=== PATIENT | female | born 1965 | race Caucasian/White ===

== ENCOUNTER 2018-05-10 19:35 | Inpatient (IN) | payer MEDICAID, OTHER ==
[2018-05-10] MEDS: ONDANSETRON 4 MG INJ IV (20:53)
[2018-05-10] MEDS: morphine 4 MG/ML VIAL IV (20:53)
[2018-05-10] MEDS: SOD CHLORIDE 0.9% 1,000 ML IV (20:54)
[2018-05-10 21:28] LABS: ADD MAN DIFF? NO
[2018-05-10 21:33] LABS: BASOPHILS % 0.3 % (0.0-2.0); EOSINOPHILS % 0.1 % (0.0-7.0); HEMATOCRIT 40.1 % (37.0-47.0); LYMPHOCYTES # 2.5 10^3/ul (0.8-2.9); LYMPHOCYTES % 27.5 % (15.0-51.0); MEAN CORPUSCULAR HEMOGLOBIN 30.9 pg (29.0-33.0); MEAN CORPUSCULAR HGB CONC 34.9 g/dl (32.0-37.0); MEAN CORPUSCULAR VOLUME 88.5 fl (82.0-101.0); MEAN PLATELET VOLUME 10.5 fl (7.4-10.4); MONOCYTE # 0.7 10^3/ul (0.3-0.9); MONOCYTES % 8.1 % (0.0-11.0); NEUTROPHIL # 5.7 10^3/ul (1.6-7.5); NEUTROPHILS % 63.6 % (39.0-77.0); PLATELET COUNT 275 10^3/UL (140-415); RED BLOOD COUNT 4.53 10^6/ul (4.20-5.40); RED CELL DISTRIBUTION WIDTH 12.1 % (11.5-14.5)
[2018-05-10 21:42] LABS: ADD UMIC YES; UR ASCORBIC ACID NEGATIVE (NEGATIVE); UR BACTERIA FEW /HPF (NONE SEEN); UR BILIRUBIN (Dip) NEGATIVE (NEGATIVE); UR BLOOD (Dip) NEGATIVE (NEGATIVE); UR CLARITY SLIGHTLY CLOUDY (CLEAR); UR COLOR YELLOW (YELLOW); UR GLUCOSE (Dip) 2+ mg/dL (NEGATIVE); UR KETONES (Dip) 2+ mg/dL (NEGATIVE); UR LEUKOCYTE ESTERASE (Dip) TRACE Leu/ul (NEGATIVE); UR MUCUS FEW /HPF (NONE SEEN); UR NITRITE (Dip) NEGATIVE (NEGATIVE); UR RBC 1 /HPF (0-5); UR SPECIFIC GRAVITY (Dip) 1.017 (1.003-1.030); UR SQUAMOUS EPITHELIAL CELL FEW /HPF (FEW); UR TOTAL PROTEIN (Dip) 1+ mg/dl (NEGATIVE); UR UROBILINOGEN (Dip) NEGATIVE (NEGATIVE); UR WBC 2 /HPF (0-5)
[2018-05-10 21:54] LABS: ALANINE AMINOTRANSFERASE 15 IU/L (13-69); ALBUMIN 4.5 g/dl (3.3-4.9); ALBUMIN/GLOBULIN RATIO 1.25; ALKALINE PHOSPHATASE 80 IU/L (42-121); ANION GAP 16 (8-16); ASPARTATE AMINO TRANSFERASE 54 IU/L (15-46); BILIRUBIN,INDIRECT 1.1 mg/dl (0-1.1); BILIRUBIN,TOTAL 1.1 mg/dl (0.2-1.3); BLOOD UREA NITROGEN 17 mg/dl (7-20); CALCIUM 9.1 mg/dl (8.4-10.2); CARBON DIOXIDE 26 mmol/L (21-31); CHLORIDE 92 mmol/L (97-110); CREATININE 0.67 mg/dl (0.44-1.00); GLUCOSE 158 mg/dl (70-220); LIPASE 629 U/L (23-300); POTASSIUM 3.5 mmol/L (3.5-5.1); SODIUM 130 mmol/L (135-144); TOTAL PROTEIN 8.1 g/dl (6.1-8.1)
[2018-05-10 22:05] LABS: TROPONIN-I 0.011 ng/ml (0.000-0.120)
[2018-05-11] MEDS: LACTATED RINGER'S 1,000 ML IV (01:03)
[2018-05-11] MEDS ORDERED: DOCUSATE SODIUM 100 MG CAP PO (02:00)
[2018-05-11] MEDS ORDERED: BISACODYL (EC) 5 MG TAB PO (02:00)
[2018-05-11] MEDS ORDERED: morphine 2 MG INJ IV (02:00)
[2018-05-11] MEDS ORDERED: ACETAMINOPHEN 325 MG TAB PO (02:00)
[2018-05-11] MEDS ORDERED: NACL 0.9% 3 ML SYG IV (02:00)
[2018-05-11] MEDS: SOD CHLORIDE 0.9% 1,000 ML IV ×4 (02:54→21:20)
[2018-05-11] MEDS: LEVOFLOXACIN 750MG/D5W (PMX) 150 ML IVPB (02:55)
[2018-05-11] MEDS ORDERED: morphine 2 MG INJ (04:58)
[2018-05-11] MEDS ORDERED: GLUCOSE GEL 15 GRAM TUBE BUCCAL (05:00)
[2018-05-11] MEDS ORDERED: GLUCAGON 1 MG INJ IM (05:00)
[2018-05-11] MEDS ORDERED: GLUCOSE GEL 15 GRAM TUBE PO (05:00)
[2018-05-11] MEDS ORDERED: DEXTROSE 50% 50 ML SYRINGE IV ×2 (05:00)
[2018-05-11] MEDS: ONDANSETRON 4 MG INJ IV (05:01)
[2018-05-11] MEDS: morphine 2 MG INJ IV (05:02)
[2018-05-11] MEDS: INSULIN ASPART [NOVOLOG] 3 ML PEN SC ×5 (05:07→21:00)
[2018-05-11 06:17] LABS: ADD MAN DIFF? NO
[2018-05-11 06:28] LABS: BASOPHILS % 0.3 % (0.0-2.0); EOSINOPHILS % 0.3 % (0.0-7.0); HEMATOCRIT 37.2 % (37.0-47.0); LYMPHOCYTES # 2.1 10^3/ul (0.8-2.9); LYMPHOCYTES % 23.5 % (15.0-51.0); MEAN CORPUSCULAR HEMOGLOBIN 30.5 pg (29.0-33.0); MEAN CORPUSCULAR HGB CONC 34.9 g/dl (32.0-37.0); MEAN CORPUSCULAR VOLUME 87.3 fl (82.0-101.0); MEAN PLATELET VOLUME 10.7 fl (7.4-10.4); MONOCYTE # 0.7 10^3/ul (0.3-0.9); MONOCYTES % 8.4 % (0.0-11.0); NEUTROPHIL # 5.9 10^3/ul (1.6-7.5); PLATELET COUNT 259 10^3/UL (140-415); RED BLOOD COUNT 4.26 10^6/ul (4.20-5.40)
[2018-05-11 06:28] LABS: WHITE BLOOD COUNT 8.8 10^3/ul (4.8-10.8)
[2018-05-11 06:45] LABS: ALANINE AMINOTRANSFERASE 20 IU/L (13-69); ALBUMIN 3.8 g/dl (3.3-4.9); ALBUMIN/GLOBULIN RATIO 1.22; ALKALINE PHOSPHATASE 63 IU/L (42-121); ANION GAP 13 (8-16); ASPARTATE AMINO TRANSFERASE 20 IU/L (15-46); BILIRUBIN,INDIRECT 0.9 mg/dl (0-1.1); BILIRUBIN,TOTAL 0.9 mg/dl (0.2-1.3); BLOOD UREA NITROGEN 12 mg/dl (7-20); CALCIUM 8.9 mg/dl (8.4-10.2); CARBON DIOXIDE 28 mmol/L (21-31); CHLORIDE 95 mmol/L (97-110); CHOLESTEROL 192 mg/dl (100-200); CREATININE 0.42 mg/dl (0.44-1.00); GLUCOSE 162 mg/dl (70-220); HDL CHOLESTEROL 93 mg/dl (37-92); LDL CHOLESTEROL,CALCULATED 83 mg/dl; MAGNESIUM 1.7 mg/dl (1.7-2.5); POTASSIUM 3.8 mmol/L (3.5-5.1); SODIUM 132 mmol/L (135-144); TOTAL PROTEIN 6.9 g/dl (6.1-8.1); TRIGLYCERIDES 82 mg/dl (0-149)
[2018-05-11 07:01] LABS: FREE THYROXINE INDEX (Calc) 2.55 ug/ml (0.65-3.89); T3 UPTAKE 34.5 % (23.5-40.5); T4 (THYROXINE) 7.4 ug/dl (5.5-11.0)
[2018-05-11 07:10] LABS: HEMOGLOBIN A1C 9.8 % (0-5.9)
[2018-05-11 10:55] LABS: LIPASE 149 U/L (23-300)
[2018-05-11 10:55] LABS: AMYLASE 102 U/L (11-123)
[2018-05-11] MEDS ORDERED: morphine LIQ (10 MG/5 ML) CUP PO (14:30)
[2018-05-12] MEDS: INSULIN ASPART [NOVOLOG] 3 ML PEN SC ×6 (01:00→21:31)
[2018-05-12] MEDS: SOD CHLORIDE 0.9% 1,000 ML IV (01:39)
[2018-05-12] MEDS: LEVOFLOXACIN 750MG/D5W (PMX) 150 ML IVPB (01:39)
[2018-05-12] MEDS: GLUCOSE GEL 15 GRAM TUBE PO (02:00)
[2018-05-12 02:27] LABS: GLUCOSE 79 mg/dl (70-220)
[2018-05-12] MEDS: DEXTROSE 5%-0.45% NACL 1,000 ML IV ×3 (03:20→23:38)
[2018-05-12 05:54] LABS: ADD MAN DIFF? NO
[2018-05-12 05:59] LABS: WHITE BLOOD COUNT 6.2 10^3/ul (4.8-10.8)
[2018-05-12 05:59] LABS: BASOPHILS % 0.5 % (0.0-2.0); EOSINOPHILS # 0.1 10^3/ul (0.0-0.5); HEMATOCRIT 35.5 % (37.0-47.0); HEMOGLOBIN 12.2 g/dl (12.0-16.0); LYMPHOCYTES # 2.4 10^3/ul (0.8-2.9); LYMPHOCYTES % 38.8 % (15.0-51.0); MEAN CORPUSCULAR HEMOGLOBIN 30.3 pg (29.0-33.0); MEAN CORPUSCULAR HGB CONC 34.4 g/dl (32.0-37.0); MEAN CORPUSCULAR VOLUME 88.3 fl (82.0-101.0); MEAN PLATELET VOLUME 10.5 fl (7.4-10.4); MONOCYTE # 0.6 10^3/ul (0.3-0.9); MONOCYTES % 10.2 % (0.0-11.0); NEUTROPHILS % 49.2 % (39.0-77.0); PLATELET COUNT 243 10^3/UL (140-415); RED BLOOD COUNT 4.02 10^6/ul (4.20-5.40); RED CELL DISTRIBUTION WIDTH 11.9 % (11.5-14.5)
[2018-05-12 06:15] LABS: MAGNESIUM 1.9 mg/dl (1.7-2.5)
[2018-05-12 06:26] LABS: ANION GAP 10 (8-16); BLOOD UREA NITROGEN 10 mg/dl (7-20); CALCIUM 8.7 mg/dl (8.4-10.2); CARBON DIOXIDE 27 mmol/L (21-31); CHLORIDE 102 mmol/L (97-110); CREATININE 0.55 mg/dl (0.44-1.00); GLUCOSE 157 mg/dl (70-220); POTASSIUM 3.2 mmol/L (3.5-5.1); SODIUM 136 mmol/L (135-144)
[2018-05-12] MEDS: POTASSIUM CHLORIDE (SR) 10 MEQ TAB PO (11:45)
[2018-05-13] MEDS: INSULIN ASPART [NOVOLOG] 3 ML PEN SC ×6 (01:35→20:51)
[2018-05-13] MEDS: LEVOFLOXACIN 750MG/D5W (PMX) 150 ML IVPB (01:37)
[2018-05-13 06:05] LABS: ADD MAN DIFF? NO
[2018-05-13 06:14] LABS: WHITE BLOOD COUNT 5.5 10^3/ul (4.8-10.8)
[2018-05-13 06:14] LABS: BASOPHIL # 0.1 10^3/ul (0.0-0.1); BASOPHILS % 0.9 % (0.0-2.0); EOSINOPHILS # 0.1 10^3/ul (0.0-0.5); EOSINOPHILS % 2.6 % (0.0-7.0); HEMOGLOBIN 12.5 g/dl (12.0-16.0); LYMPHOCYTES # 2.3 10^3/ul (0.8-2.9); LYMPHOCYTES % 42.3 % (15.0-51.0); MEAN CORPUSCULAR HEMOGLOBIN 30.7 pg (29.0-33.0); MEAN CORPUSCULAR HGB CONC 34.7 g/dl (32.0-37.0); MEAN CORPUSCULAR VOLUME 88.5 fl (82.0-101.0); MEAN PLATELET VOLUME 10.8 fl (7.4-10.4); MONOCYTE # 0.5 10^3/ul (0.3-0.9); MONOCYTES % 9.5 % (0.0-11.0); NEUTROPHIL # 2.4 10^3/ul (1.6-7.5); NEUTROPHILS % 44.3 % (39.0-77.0); PLATELET COUNT 220 10^3/UL (140-415); RED BLOOD COUNT 4.07 10^6/ul (4.20-5.40); RED CELL DISTRIBUTION WIDTH 12.1 % (11.5-14.5)
[2018-05-13 06:57] LABS: ALANINE AMINOTRANSFERASE 21 IU/L (13-69); ALBUMIN 3.4 g/dl (3.3-4.9); ALBUMIN/GLOBULIN RATIO 1.25; ALKALINE PHOSPHATASE 51 IU/L (42-121); ANION GAP 9 (8-16); ASPARTATE AMINO TRANSFERASE 18 IU/L (15-46); BILIRUBIN,INDIRECT 0.7 mg/dl (0-1.1); BILIRUBIN,TOTAL 0.7 mg/dl (0.2-1.3); BLOOD UREA NITROGEN 6 mg/dl (7-20); CARBON DIOXIDE 28 mmol/L (21-31); CHLORIDE 105 mmol/L (97-110); CREATININE 0.51 mg/dl (0.44-1.00); GLUCOSE 165 mg/dl (70-220); POTASSIUM 3.6 mmol/L (3.5-5.1); SODIUM 138 mmol/L (135-144); TOTAL PROTEIN 6.1 g/dl (6.1-8.1)
[2018-05-13 07:39] LABS: PHOSPHORUS 3.7 mg/dl (2.5-4.9)
[2018-05-13 07:39] LABS: MAGNESIUM 1.9 mg/dl (1.7-2.5)
[2018-05-13] MEDS: DEXTROSE 5%-0.45% NACL 1,000 ML IV ×4 (09:30→20:59)
[2018-05-13] MEDS: NA PHOSPHATE/BIPHOS 133 ML ENEMA PR (12:44)
[2018-05-14] MEDS: INSULIN ASPART [NOVOLOG] 3 ML PEN SC ×6 (02:27→20:54)
[2018-05-14 06:09] LABS: ADD MAN DIFF? NO
[2018-05-14 06:22] LABS: BASOPHILS % 0.3 % (0.0-2.0); EOSINOPHILS # 0.2 10^3/ul (0.0-0.5); EOSINOPHILS % 2.6 % (0.0-7.0); HEMATOCRIT 32.6 % (37.0-47.0); LYMPHOCYTES # 2.6 10^3/ul (0.8-2.9); LYMPHOCYTES % 42.7 % (15.0-51.0); MEAN CORPUSCULAR HEMOGLOBIN 30.3 pg (29.0-33.0); MEAN CORPUSCULAR HGB CONC 33.7 g/dl (32.0-37.0); MEAN CORPUSCULAR VOLUME 89.8 fl (82.0-101.0); MEAN PLATELET VOLUME 10.8 fl (7.4-10.4); MONOCYTE # 0.5 10^3/ul (0.3-0.9); MONOCYTES % 8.3 % (0.0-11.0); NEUTROPHIL # 2.8 10^3/ul (1.6-7.5); NEUTROPHILS % 45.8 % (39.0-77.0); PLATELET COUNT 212 10^3/UL (140-415); RED BLOOD COUNT 3.63 10^6/ul (4.20-5.40); RED CELL DISTRIBUTION WIDTH 12.2 % (11.5-14.5)
[2018-05-14 06:22] LABS: WHITE BLOOD COUNT 6.2 10^3/ul (4.8-10.8)
[2018-05-14 06:52] LABS: ANION GAP 7 (8-16); BLOOD UREA NITROGEN 6 mg/dl (7-20); CALCIUM 8.8 mg/dl (8.4-10.2); CARBON DIOXIDE 27 mmol/L (21-31); CHLORIDE 107 mmol/L (97-110); CREATININE 0.56 mg/dl (0.44-1.00); GLUCOSE 169 mg/dl (70-220); POTASSIUM 3.2 mmol/L (3.5-5.1); SODIUM 138 mmol/L (135-144)
[2018-05-14 07:03] LABS: MAGNESIUM 1.8 mg/dl (1.7-2.5)
[2018-05-14 07:03] LABS: PHOSPHORUS 4.8 mg/dl (2.5-4.9)
[2018-05-14] MEDS: DIATR MEGLU/DIATRIZOATE SODIUM 120 ML BTL (07:28)
[2018-05-14] MEDS: DEXTROSE 5%-0.45% NACL 1,000 ML IV ×3 (09:38→19:31)
[2018-05-14] MEDS: POTASSIUM CHLORIDE (SR) 20 MEQ TAB PO (10:43)
[2018-05-14] MEDS: ONDANSETRON 4 MG INJ IV (11:56)
[2018-05-14] MEDS: hydrALAzine 20 MG INJ IV (14:32)
[2018-05-14] MEDS: PROCHLORPERAZINE 10 MG INJ IV (18:01)
[2018-05-15] MEDS: INSULIN ASPART [NOVOLOG] 3 ML PEN SC ×8 (00:58→20:56)
[2018-05-15] MEDS: DEXTROSE 5%-0.45% NACL 1,000 ML IV ×3 (01:30→21:47)
[2018-05-15] MEDS: PROCHLORPERAZINE 10 MG INJ IV (05:48)
[2018-05-15 06:13] LABS: ADD MAN DIFF? NO
[2018-05-15 06:18] LABS: BASOPHILS % 0.2 % (0.0-2.0); EOSINOPHILS # 0.1 10^3/ul (0.0-0.5); EOSINOPHILS % 0.8 % (0.0-7.0); HEMATOCRIT 37.5 % (37.0-47.0); HEMOGLOBIN 12.7 g/dl (12.0-16.0); LYMPHOCYTES # 4.6 10^3/ul (0.8-2.9); LYMPHOCYTES % 44.1 % (15.0-51.0); MEAN CORPUSCULAR HEMOGLOBIN 30.2 pg (29.0-33.0); MEAN CORPUSCULAR HGB CONC 33.9 g/dl (32.0-37.0); MEAN CORPUSCULAR VOLUME 89.1 fl (82.0-101.0); MEAN PLATELET VOLUME 10.9 fl (7.4-10.4); MONOCYTE # 0.7 10^3/ul (0.3-0.9); MONOCYTES % 6.9 % (0.0-11.0); NEUTROPHIL # 4.9 10^3/ul (1.6-7.5); NEUTROPHILS % 47.7 % (39.0-77.0); PLATELET COUNT 299 10^3/UL (140-415); RED BLOOD COUNT 4.21 10^6/ul (4.20-5.40); RED CELL DISTRIBUTION WIDTH 12.5 % (11.5-14.5)
[2018-05-15 06:18] LABS: WHITE BLOOD COUNT 10.3 10^3/ul (4.8-10.8)
[2018-05-15 06:38] LABS: ANION GAP 16 (8-16); BLOOD UREA NITROGEN 5 mg/dl (7-20); CALCIUM 9.3 mg/dl (8.4-10.2); CARBON DIOXIDE 28 mmol/L (21-31); CHLORIDE 98 mmol/L (97-110); GLUCOSE 192 mg/dl (70-220); SODIUM 139 mmol/L (135-144)
[2018-05-15 06:46] LABS: MAGNESIUM 1.7 mg/dl (1.7-2.5); POTASSIUM 2.7 mmol/L (3.5-5.1)
[2018-05-15 06:46] LABS: PHOSPHORUS 4.1 mg/dl (2.5-4.9)
[2018-05-15] MEDS: POTASSIUM CHLORIDE 100 ML IVPB ×3 (08:44→17:15)
[2018-05-15] MEDS: MAGNESIUM SULFATE 1 GM/D5W 100 ML IVPB (11:58)
[2018-05-15] MEDS: hydrALAzine 20 MG INJ IV (14:19)
[2018-05-15 19:53] LABS: ANION GAP 13 (8-16); BLOOD UREA NITROGEN 3 mg/dl (7-20); CALCIUM 9.2 mg/dl (8.4-10.2); CARBON DIOXIDE 29 mmol/L (21-31); CHLORIDE 95 mmol/L (97-110); CREATININE 0.46 mg/dl (0.44-1.00); GLUCOSE 185 mg/dl (70-220); POTASSIUM 3.6 mmol/L (3.5-5.1); SODIUM 133 mmol/L (135-144)
[2018-05-15] MEDS: INSULIN GLARGINE [LANtus] 3 ML PEN SC (20:51)
[2018-05-16] MEDS: ONDANSETRON 4 MG INJ IV (00:01)
[2018-05-16] MEDS: INSULIN ASPART [NOVOLOG] 3 ML PEN SC ×9 (01:25→21:12)
[2018-05-16] MEDS: hydrALAzine 20 MG INJ IV (02:04)
[2018-05-16 05:43] LABS: ADD MAN DIFF? NO
[2018-05-16 05:48] LABS: BASOPHILS % 0.3 % (0.0-2.0); EOSINOPHILS # 0.1 10^3/ul (0.0-0.5); EOSINOPHILS % 0.7 % (0.0-7.0); HEMATOCRIT 33.1 % (37.0-47.0); HEMOGLOBIN 11.6 g/dl (12.0-16.0); LYMPHOCYTES # 1.8 10^3/ul (0.8-2.9); MEAN CORPUSCULAR HEMOGLOBIN 30.3 pg (29.0-33.0); MEAN CORPUSCULAR VOLUME 86.4 fl (82.0-101.0); MEAN PLATELET VOLUME 11.5 fl (7.4-10.4); MONOCYTE # 0.4 10^3/ul (0.3-0.9); NEUTROPHIL # 4.8 10^3/ul (1.6-7.5); NEUTROPHILS % 67.7 % (39.0-77.0); RED BLOOD COUNT 3.83 10^6/ul (4.20-5.40); RED CELL DISTRIBUTION WIDTH 12.1 % (11.5-14.5)
[2018-05-16 05:48] LABS: WHITE BLOOD COUNT 7.1 10^3/ul (4.8-10.8)
[2018-05-16 06:19] LABS: ANION GAP 13 (8-16); BLOOD UREA NITROGEN 5 mg/dl (7-20); CALCIUM 8.8 mg/dl (8.4-10.2); CARBON DIOXIDE 25 mmol/L (21-31); CHLORIDE 94 mmol/L (97-110); CREATININE 0.51 mg/dl (0.44-1.00); GLUCOSE 238 mg/dl (70-220); POTASSIUM 3.1 mmol/L (3.5-5.1); SODIUM 129 mmol/L (135-144)
[2018-05-16 06:44] LABS: POSITIVE DIFF @See below
[2018-05-16] MEDS: DEXTROSE 5%-0.45% NACL 1,000 ML IV ×2 (07:30→11:13)
[2018-05-16 07:47] LABS: PLATELET COUNT 210 10^3/UL (140-415)
[2018-05-16 08:11] LABS: MAGNESIUM 1.7 mg/dl (1.7-2.5)
[2018-05-16 08:17] LABS: ANISOCYTOSIS 2+ (0-0); BASOPHILS % (M) 1 % (0-2); LYMPHOCYTES #M 3.7 10^3/ul (0.8-2.9); LYMPHOCYTES % (M) 53 % (15-51); MICROCYTOSIS 1+ (0-0); MONOCYTE #M 0.4 10^3/ul (0.3-0.9); MONOCYTES % (M) 7 % (0-11); PLATELET ESTIMATE NORMAL; PLATELET MORPHOLOGY COMMENT @See below; POLYCHROMASIA 3+ (0-0); REACTIVE LYMPHOCYTES #M 0.2 10^3/ul (0.0-0.0); REACTIVE LYMPHOCYTES% (M) 4 % (0-0); SEGMENTED NEUTROPHILS (M) % 35 % (39-77); SMUDGE%M 1 % (0-0)
[2018-05-16] MEDS: PROCHLORPERAZINE 10 MG INJ IV ×2 (08:22→12:21)
[2018-05-16] MEDS: AMLODIPINE 5 MG TAB PO ×2 (09:30→21:05)
[2018-05-16] MEDS: SODIUM CHLORIDE 1 GM TAB PO (11:08)
[2018-05-16] MEDS: POTASSIUM CHLORIDE (SR) 20 MEQ TAB PO (11:08)
[2018-05-16] MEDS: METOCLOPRAMIDE 10 MG INJ IV ×2 (16:47→18:00)
[2018-05-16] MEDS ORDERED: INSULIN GLARGINE [LANtus] 3 ML PEN SC (20:00)
[2018-05-16] MEDS: INSULIN GLARGINE [LANtus] 3 ML PEN SC (21:14)
[2018-05-17] MEDS: METOCLOPRAMIDE 10 MG INJ IV ×5 (00:16→23:56)
[2018-05-17] MEDS: INSULIN ASPART [NOVOLOG] 3 ML PEN SC ×9 (01:21→20:45)
[2018-05-17] MEDS: hydrALAzine 20 MG INJ IV (02:46)
[2018-05-17 06:50] LABS: ALANINE AMINOTRANSFERASE 18 IU/L (13-69); ALBUMIN 3.9 g/dl (3.3-4.9); ALBUMIN/GLOBULIN RATIO 1.34; ALKALINE PHOSPHATASE 51 IU/L (42-121); ANION GAP 11 (8-16); ASPARTATE AMINO TRANSFERASE 20 IU/L (15-46); BILIRUBIN,INDIRECT 0.9 mg/dl (0-1.1); BILIRUBIN,TOTAL 0.9 mg/dl (0.2-1.3); BLOOD UREA NITROGEN 8 mg/dl (7-20); CARBON DIOXIDE 28 mmol/L (21-31); CHLORIDE 95 mmol/L (97-110); CREATININE 0.56 mg/dl (0.44-1.00); GLUCOSE 140 mg/dl (70-220); POTASSIUM 3.5 mmol/L (3.5-5.1); SODIUM 130 mmol/L (135-144); TOTAL PROTEIN 6.8 g/dl (6.1-8.1)
[2018-05-17] MEDS: AMLODIPINE 5 MG TAB PO ×2 (08:35→20:40)
[2018-05-17] MEDS: SOD CHLORIDE 0.9% 1,000 ML IV ×2 (11:58→23:33)
[2018-05-17] MEDS: INSULIN GLARGINE [LANtus] 3 ML PEN SC (20:42)
[2018-05-18] MEDS: INSULIN ASPART [NOVOLOG] 3 ML PEN SC ×6 (01:00→12:18)
[2018-05-18] MEDS: METOCLOPRAMIDE 10 MG INJ IV ×2 (05:14→12:12)
[2018-05-18] MEDS: AMLODIPINE 5 MG TAB PO (08:10)
== END 2018-05-18 13:25 | disposition home or self-care (01) | DRG 74 ==
LOC: MS2 05-12 14:25 → E/R 19:35
DX: E11.43 Type 2 diabetes mellitus with diabetic autonomic (poly)neuropathy (principal); E87.1 Hypo-osmolality and hyponatremia; N13.30 Unspecified hydronephrosis; K31.84 Gastroparesis; E78.5 Hyperlipidemia, unspecified; E87.6 Hypokalemia; Z79.4 Long term (current) use of insulin; Z79.84 Long term (current) use of oral hypoglycemic drugs
CPT/HCPCS: 36415; 74018; 74176; 74250; 76775; 80048; 80053; 80061; 81001; 82150; 82947; 82962; 83036; 83605; 83690; 83735; 84100; 84436; 84479; 84484; 85025; 87086; 93005; 96374; 96375; 99285-25

== ENCOUNTER 2018-05-28 19:04 | Emergency (ER) | payer MEDICAID ==
[2018-05-28 20:21] LABS: URINE BLOOD (Dip) POC Negative (NEGATIVE); URINE KETONES (Dip) POC Negative (NEGATIVE); URINE LEUKOCYTE EST (Dip) POC 1+ (NEGATIVE); URINE NITRITE (Dip) POC Negative (NEGATIVE); URINE TOTAL PROTEIN POC 1+ (NEGATIVE)
[2018-05-28 20:40] LABS: ADD MAN DIFF? NO
[2018-05-28 20:41] LABS: WHITE BLOOD COUNT 12.4 10^3/ul (4.8-10.8)
[2018-05-28 20:41] LABS: BASOPHIL # 0.1 10^3/ul (0.0-0.1); BASOPHILS % 0.5 % (0.0-2.0); EOSINOPHILS # 0.1 10^3/ul (0.0-0.5); EOSINOPHILS % 1.1 % (0.0-7.0); HEMOGLOBIN 13.5 g/dl (12.0-16.0); LYMPHOCYTES # 4.1 10^3/ul (0.8-2.9); LYMPHOCYTES % 33.3 % (15.0-51.0); MEAN CORPUSCULAR HEMOGLOBIN 30.5 pg (29.0-33.0); MEAN CORPUSCULAR HGB CONC 34.6 g/dl (32.0-37.0); MEAN CORPUSCULAR VOLUME 88.2 fl (82.0-101.0); MEAN PLATELET VOLUME 10.2 fl (7.4-10.4); MONOCYTE # 0.9 10^3/ul (0.3-0.9); NEUTROPHIL # 7.1 10^3/ul (1.6-7.5); NEUTROPHILS % 57.6 % (39.0-77.0); PLATELET COUNT 270 10^3/UL (140-415); RED BLOOD COUNT 4.42 10^6/ul (4.20-5.40); RED CELL DISTRIBUTION WIDTH 12.4 % (11.5-14.5)
[2018-05-28 21:06] LABS: ALBUMIN/GLOBULIN RATIO 1.25; ALKALINE PHOSPHATASE 78 IU/L (42-121); ANION GAP 21 (8-16); ASPARTATE AMINO TRANSFERASE 77 IU/L (15-46); BILIRUBIN,INDIRECT 0.9 mg/dl (0-1.1); BILIRUBIN,TOTAL 0.9 mg/dl (0.2-1.3); BLOOD UREA NITROGEN 14 mg/dl (7-20); CALCIUM 9.5 mg/dl (8.4-10.2); CARBON DIOXIDE 24 mmol/L (21-31); CHLORIDE 89 mmol/L (97-110); CREATININE 0.59 mg/dl (0.44-1.00); GLUCOSE 167 mg/dl (70-220); LIPASE 204 U/L (23-300); POTASSIUM 5.2 mmol/L (3.5-5.1); SODIUM 129 mmol/L (135-144)
[2018-05-28] MEDS: SOD CHLORIDE 0.9% 1,000 ML IV ×2 (21:07→23:36)
[2018-05-28] MEDS: METOCLOPRAMIDE 10 MG INJ IV (21:07)
[2018-05-28 21:34] LABS: ADD UMIC YES; UR ASCORBIC ACID NEGATIVE (NEGATIVE); UR BILIRUBIN (Dip) NEGATIVE (NEGATIVE); UR BLOOD (Dip) NEGATIVE (NEGATIVE); UR CLARITY CLEAR (CLEAR); UR COLOR YELLOW (YELLOW); UR GLUCOSE (Dip) 2+ mg/dL (NEGATIVE); UR KETONES (Dip) NEGATIVE (NEGATIVE); UR LEUKOCYTE ESTERASE (Dip) TRACE Leu/ul (NEGATIVE); UR NITRITE (Dip) NEGATIVE (NEGATIVE); UR RBC 1 /HPF (0-5); UR SPECIFIC GRAVITY (Dip) 1.011 (1.003-1.030); UR TOTAL PROTEIN (Dip) NEGATIVE (NEGATIVE); UR UROBILINOGEN (Dip) NEGATIVE (NEGATIVE); UR WBC 8 /HPF (0-5)
[2018-05-28 21:36] LABS: ALANINE AMINOTRANSFERASE < 6 IU/L (13-69)
[2018-05-29] MEDS: MAGNESIUM CITRATE 300 ML BTL PO (00:54)
[2018-05-29] MEDS: ONDANSETRON 4 MG INJ IV (00:54)
== END 2018-05-29 01:56 | disposition home or self-care (01) ==
LOC: E/R 05-29 01:56
DX: K59.00 Constipation, unspecified (principal); N39.0 Urinary tract infection, site not specified; I10 Essential (primary) hypertension; E11.9 Type 2 diabetes mellitus without complications; Z79.4 Long term (current) use of insulin
CPT/HCPCS: 36415; 74176; 80053; 81001; 81003; 81025; 83690; 85025; 96361; 96374; 96375; 99285-25

== ENCOUNTER 2018-06-07 22:32 | Emergency (ER) | payer MEDICAID ==
[2018-06-08] MEDS: ONDANSETRON (ODT) 4 MG TAB ODT (03:27)
[2018-06-08] MEDS: LACTULOSE 30ML CUP PO (03:27)
[2018-06-08 03:43] LABS: URINE BLOOD (Dip) POC Negative (NEGATIVE); URINE GLUCOSE (Dip) POC Negative (NEGATIVE); URINE KETONES (Dip) POC 1+ (NEGATIVE); URINE LEUKOCYTE EST (Dip) POC 1+ (NEGATIVE); URINE NITRITE (Dip) POC Negative (NEGATIVE); URINE TOTAL PROTEIN POC 2+ (NEGATIVE)
== END 2018-06-08 05:41 | disposition home or self-care (01) ==
LOC: FTE 22:32
DX: K59.00 Constipation, unspecified (principal); N30.00 Acute cystitis without hematuria; I10 Essential (primary) hypertension; E11.9 Type 2 diabetes mellitus without complications; Z79.4 Long term (current) use of insulin
CPT/HCPCS: 74019; 81003; 81025; 87086; 99284-25